=== PATIENT | male | born 1950 | race Caucasian/White ===

== ENCOUNTER → 2021-04-02 | Outpatient (CLI) | payer MEDICARE, OTHER ==
--- NOTE | 2021-04-08 22:20 | PF ---
[address] [address] PULMONARY FUNCTION REPORT Name: LINCOLN VAUGHN Room: [facility] Kareem.Marisa.#: [id number] Admission: 04/02/21 Attend Phys: Kimberli Diop MD, Discharge: Date of : 50 Report #: [id number] THIS REPORT FOR: cc: Benjamín Patel James A. DO Pervez, Adeel MD ~ DATE OF VISIT: 04/02/2021 The FEV1/FVC ratio is decreased to 51% with an FVC normal at 115% and FEV1 normal at 80%. The FEF 25-75 is decreased to 25%. After the administration of a bronchodilator, there is a 14% increase in FVC and a 12% increase in FEV1. The patient's post-bronchodilator FEV1 is 2.90 liters. The total lung capacity is normal at 102% with residual volume mildly decreased to 70%. The DLCO as adjusted for hemoglobin is decreased to 59%. The flow volume loop is concave upwards. IMPRESSION: 1. There is obstruction present by FEV1 criteria, this would be mild obstruction with evidence of reversibility. It is, however, noted that there is a marked reduction in the FEV1/FVC ratio to only 51%. The patient's obstructive lung disease may therefore in fact be more severe than apparent by FEV1 alone. 2. There is isolated reduction in residual volume to 70% on lung volumes. This is likely a normal variant, but mild restriction can also lead to this picture. Clinical correlation is advised. 3. DLCO as adjusted for hemoglobin decreased to 59%. <ELECTRONICALLY SIGNED> By: Cali Rivas MD 04/08/21 2220 [id number] Rivas MD /nt
== END ==
LOC: M.PUL 10:50
PROVIDERS: ATTEND Internal Medicine
DX: J98.4 Other disorders of lung (principal); R06.00 Dyspnea, unspecified